=== PATIENT | female | born 1950 | race Caucasian/White ===

== ENCOUNTER 2020-02-06 11:25 | Day surgery (SDC) | payer MEDICARE, BC ==
[~2020-02-06] VITALS: Ht 160 cm; Wt 89.7 kg
--- NOTE | ~2020-02-06 | HEMODYNAMI ---
PATIENT:LUIS TOLEDO MEDICAL RECORD: [id number] : 48 LOCATION:[facility] ADMISSION DATE: 02/06/20 Generatedon:02/06/202013:59 Patient name: LUIS TOLEDO Patient #: [id number] SSN: : 1950 Date of study: 02/06/2020 Page: Of Hemodynamic Procedure Report Patient Data Patient Demographics Procedure consent was obtained First Name: LUIS Gender: Female Last Name: [place] : 1950 Patient #: [id number] Age: 69 year(s) Race: Additional ID: [id number] Contact details Address: [facility] [address] State: [place] City: [place] Zip code: [address] Admission Admission Data Admission Date: 02/06/2020 Admission Time: 11:25 Arrival Date: 02/06/2020 Arrival Time: 0:00 Admit Source: Other Insurance Payor: Medicare [facility] #: [id number] Height (in.): 62.99 BSA: 1.92 (m2) Height (cm.): 160 BMI: 34.77 (kg/m2) Weight (lbs.): 196.21 Weight (kg.): 89 Procedure Procedure Types Cath Procedure Diagnostic Procedure LHC LHC w/Coronaries w/Grafts Sedation Charges Moderate Sedation up to 15 minutes PCI Procedure Coronary Stent Coronary Stent Initial Hemochron ACT Test Procedure Description Procedure Date Procedure Date: 02/06/2020 Procedure Start Time: 13:38 Procedure End Time: 13:57 Procedure Staff Name Function Alvin Cabello MD Performing Physician Jaclyn Franco RT Monitor Rosey Robles RT Scrub Cecilio Robertson RN Nurse Procedure Data Cath Procedure Fluoroscopy Diagnostic fluoroscopy Total fluoroscopy Time: 3.2 time: 3.2 min min Diagnostic fluoroscopy Total fluoroscopy dose: 624 dose: 624 mGy mGy Contrast Material Contrast Material Type Amount (ml) Isovue 300 98 Entry Location Entry Primary Successful Side Size Upsize Upsize Entry Closure Succes sful Closure Location (Fr) 1 (Fr) 2 (Fr) Remarks Device Remarks Femoral Right 5 Fr 6 Fr Exoseal artery Short Estimated blood loss: 5 ml Diagnostic catheters Device Type Used For End Catheter Placement MULTIPACK JL 4.0 5Fr Left Coronary catheter Angiography MULTIPACK 3DRC 5Fr Right Coronary catheter Angiography MULTIPACK Pigtail 5 Fr LV Angiography catheter Procedure Complications No complications Procedure Medications Medication Administration Route Dosage 0.9% NaCl I.V. 100 ml/hr Oxygen etCO2 Nasal cannula 2 l/min Heparin Flush Bag added to field 2 bags (1000units/500ml NS) Lidocaine 2% added to field 20 Versed I.V. 2 mg Fentanyl I.V. 100 mcg Heparin Bolus I.V. 5000 units Integrilin (Bolus I.V. 7.9 ml 2mg/ml) Integrilin (Bolus wasted 2.1 ml 2mg/ml) Plavix P.O. 600 mg Hemodynamics Rest BSA: 1.92 (m2) O2 Consumption: Estimated: 181.42 (ml/min) O2 Consumption indexed : Estimated:94.49 (ml/min/m) Heart Rate: 76 (bpm) Pressure Samples Time Site Value (mmHg) Purpose Heart Use Rate(bpm) 13:46 LV 109/7,6 Snapshot 72 13:46 AO 187/129(151) Pullback 72 Gradients Valve Time Site Site 2 Mean SEP/DFP Peak To Heart Use 1 (mmHg) (sec/min) Peak Rate (mmHg) (bpm) Aortic 13:46 LV AO 72 187/129(151) Snapshots Pre Cath Intra NCS Post Cath Vital Signs Time Heart Resp SPO2 etCO2 NIBP Rhythm Pain Sedation Rate (ipm) (%) (mmHg) (mmHg) Status Level (bpm) 13:33:45 71 17 97 27.6 107/58(82) NSR 0 (11) 10(A) , No pain 13:38:09 70 17 96 30.6 101/54(72) NSR 0 (11) 10(A) , No pain 13:42:31 68 12 96 0 95/52(69) NSR 0 (11) 10(A) , No pain 13:46:49 71 12 94 34.3 101/59(76) NSR 0 (11) 9(A) , No pain 13:51:12 71 13 94 0 100/54(76) NSR 0 (11) 9(A) , No pain 13:55:32 71 16 96 33.6 100/56(78) NSR 0 (11) 10(A) , No pain Medications Time Medication Route Dose Verified Delivered Reason Notes Effectiveness by by 13:31:59 0.9% NaCl I.V. 100 Cecilio Cecilio Per physician ml/hr Marcelo Robertson RN RN 13:32:15 Oxygen etCO2 2 Cecilio Cecilio for low 02 sats Nasal l/min Marcelo Robertson cannula RN RN 13:32:26 Heparin Flush added 2 Cecilio Cecilio used for Bag to bags Marcelo Robertson procedure (1000units/500ml field RN RN NS) 13:32:36 Lidocaine 2% added 20ml Cecilio Cecilio for local to vial Marcelo Robertson anesthetic RN RN 13:38:36 Versed I.V. 2 mg Cecilio Cecilio for sedation Marcelo Robertson RN RN 13:38:46 Fentanyl I.V. 100 Cecilio Cecilio for sedation mcg Marcelo Robertson RN RN 13:51:14 Heparin Bolus I.V. 5000 Cecilio Cecilio for units Marcelo Robertson anticoagulation RN RN 13:51:38 Integrilin I.V. 7.9 Cecilio Cecilio for (Bolus 2mg/ml) ml Marcelo Robertson antiplatelet RN RN therapy 13:51:48 Integrilin wasted 2.1 Cecilio Cecilio to sharp's (Bolus 2mg/ml) ml Marcelo Robertson RN RN 13:57:08 Plavix P.O. 600 Cecilio Cecilio for mg Marcelo Robertson antiplatelet RN RN therapy Procedure Log Time Note 13:04:34 Informed consent obtained and on chart 13:04:44 Diagnostic Cath Status : Elective 13:05:10 Arrival Date: 02/06/2020 12:00:00 AM 13:05:11 Admit Source: Other 13:13:43 Insurance Payor : Medicare 13:13:51 Patient Height : 62.99 inches 13:13:55 Patient Weight : 196.21 lbs 13:14:11 Procedure Status Elective Heart Cath (OP). 13:14:15 Time tracking: Regular hours (M-F 7:00 - 5:00) 13:14:19 Plan of Care:Hemodynamics will remain stable., Cardiac rhythm will remain stable., Comfort level will be maintained., Respiratory function will remain adequate., Patient/ family verbilizes understanding of procedure., Procedure tolerated without complication., Recovers from procedure without complications.. 13:16:44 Jaclyn Franco RT(R) sent for patient. Start room use. 13:31:59 0.9% NaCl 100 ml/hr I.V. was administered by Cecilio Robertson RN; Per physician; Verbal order read back and verified. 13:32:15 Oxygen 2 l/min etCO2 Nasal cannula was administered by Cecilio Robertson RN; for low 02 sats; Verbal order read back and verified. 13:32:23 Patient received from Pre/Post Procedure Room to CCL 1 Alert and oriented. Tansferred to table in Supine position. 13:32:24 Warm blankets applied, and jerman hugger turned on for patient comfort. 13:32:25 Correct patient and procedure confirmed by team. 13:32:25 ECG and BP/O2 sat monitors applied to patient. 13:32:26 Heparin Flush Bag (1000units/500ml NS) 2 bags added to field was administered by Cecilio Robertson RN; used for procedure; Verbal order read back and verified. 13:32:26 Vital chart was started 13:32:27 Baseline sample Acquired. 13:32:31 Rhythm: sinus rhythm 13:32:33 Full Disclosure recording started 13:32:36 Lidocaine 2% 20ml vial added to field was administered by Cecilio Robertson RN; for local anesthetic; Verbal order read back and verified. 13:32:39 H&P Date Dictated: 02/06/2020 Within 30 days and on chart., H&P Addendum completed by physician on day of procedure. (MUST COMPLETE FOR ALL OUTPATIENTS). 13:32:41 Pre-procedure instructions explained to patient. 13:32:42 Pre-op teaching completed and patient verbalized understanding. 13:32:44 Family in patients room. 13:32:45 Patient NPO since Midnight. 13:32:48 Is the patient allergic to Iodine/contrast media? No. 13:32:54 Was the patient premedicated? Yes 13:32:56 Is patient on blood thinner?No 13:32:58 Patient diabetic? Yes. 13:33:04 If diabetic: On Metformin? No 13:33:06 Previous problem with sedation/anesthesia? No ? 13:33:09 Snore? Yes 13:33:10 Sleep apnea? No 13:33:11 Deviated septum? No 13:33:12 Opens mouth fully? Yes 13:33:12 Sticks out tongue? Yes 13:33:14 Airway obstruction? No ? 13:33:17 Dentures? No ? 13:33:20 Pre procedure: right dorsailis pedis pulse 2+ Normal; easily identifiable; not easily obliterated 13:33:22 Pre procedure: left dorsailis pedis pulse 2+ Normal; easily identifiable; not easily obliterated 13:33:24 Patient pain scale 0/10 ?. 13:33:31 IV patent on arrival in left forearm with 0.9% NaCl at [facility]. 13:33:35 Lab results completed and on chart. 13:33:58 Stress Test: no; N/A ? 13:35:54 Risk of Mortality: 0.1 13:35:56 Risk of blood transfusion: 0.4 13:35:58 Risk of LUIS: 0.3 13:36:02 Right groin area was prepped with chlora-prep and draped in sterile fashion 13:36:03 Alarms reviewed by R. N. 13:36:03 Sharps counted by scrub and verified by R.N. 13:36:05 Physician arrived 13:36:06 --------ALL STOP TIME OUT------ 13:36:06 Final Timeout: patient, procedure, and site verified with staff and physician. All members of the team are in agreement. 13:36:09 Right groin site verified by team. 13:36:13 Fire Safety Assessment: A--An alcohol-based skin anteseptic being used preoperatively., C--Open oxygen or nitrous oxide is being used., D--An ESU, laser, or fiber-optic light is being used. 13:36:16 Physical assessment completed. ASA score P 2 - A patient with mild systemic disease as per Alvin Cabello MD. 13:36:24 3a) 45-59 Moderately reduced kidney function. 13:36:46 Maximum allowable contrast dose (3.7 X eGFR X 0.75)130 ml. 13:36:51 Sedation plan: IV Moderate Sedation Medication:Versed, Fentanyl 13:36:54 Use device set Femoral Dx 13:36:55 ACIST Syringe (99349) opened to sterile field. 13:36:56 Bag Decanter (2001S) opened to sterile field. 13:36:56 Medline Cath Pack ([id number]) opened to sterile field. 13:36:57 ACIST Hand Control (80704) opened to sterile field. 13:36:58 ACIST Manifold (80546) opened to sterile field. 13:36:58 DIAGNOSTIC Multipack 5Fr catheter set (VD8940) opened to sterile field. 13:36:59 Tegaderm 4 x 4 (1626W) opened to sterile field. 13:37:00 SHEATH 5FR Knickerbocker (HXM464) opened to sterile field. 13:37:01 EMERALD Guide Wire (947-686) opened to sterile field. 13:38:36 Versed 2 mg I.V. was administered by Cecilio Robertson RN; for sedation; Verbal order read back and verified. 13:38:46 Fentanyl 100 mcg I.V. was administered by Cecilio Robertson RN; for sedation; Verbal order read back and verified. 13:38:46 Procedure started. 13:38:51 Local anesthetic to right femoral artery with Lidocaine 2% by Alvin Cabello MD.INITIAL ACCESS ONLY 13:40:00 A 5 Fr sheath was inserted into the Right Femoral artery 13:40:44 A MULTIPACK JL 4.0 5Fr catheter was advanced over the wire and used for Left Coronary Angiography. 13:42:00 LCA angiography performed. 13:42:02 Injector settings: Ml/sec: 3, Volume: 6, 13:42:34 Catheter removed. 13:42:40 A MULTIPACK 3DRC 5Fr catheter was advanced over the wire and used for Right Coronary Angiography. 13:43:26 RCA angiography performed. 13:43:29 Injector settings: Ml/sec: 3, Volume: 6, 13:45:21 Catheter removed. 13:45:44 A MULTIPACK Pigtail 5 Fr catheter was advanced over the wire and used for LV Angiography. 13:46:14 LV hemodynamics recorded. 13:46:15 LV gram done using DEL CASTILLO 13:46:18 Injector settings: Ml/sec: 5, Volume: 15, 13:46:24 EF : 55 % 13:46:26 Catheter removed. 13:46:27 Proceeding to intervention. 13:46:42 SHEATH 6FR Knickerbocker (EMW955) opened to sterile field. 13:46:43 INFLATOR Merit CaydenCompak (US7897) opened to sterile field. 13:46:43 WHISPER 300cm guide wire ([id number]) opened to sterile field. 13:48:38 GUIDE 6FR XBLAD 3.5 catheter ([id number]) opened to sterile field. 13:49:15 Sheath upsized to a 6 Fr Short. 13:49:21 6 Fr xblad 3.5 guide catheter was inserted over the wire 13:49:26 whisper wire advanced. 13:50:01 Wire advanced across lesion. 13:51:14 Heparin Bolus 5000 units I.V. was administered by Cecilio Robertson RN; for anticoagulation; Verbal order read back and verified. 13:51:38 Integrilin (Bolus 2mg/ml) 7.9 ml I.V. was administered by Cecilio Robertson RN; for antiplatelet therapy; Verbal order read back and verified. 13:51:48 Integrilin (Bolus 2mg/ml) 2.1 ml wasted was administered by Cecilio Robertson RN; to sharp's; Verbal order read back and verified. 13:53:39 ACC Pre-intervention MONI Flow is 3. 13:53:44 Pre PCI Site: [place] mCirc has 80% stenosis. 13:53:48 Place stent Inflation Number: 1 A DEVEN RX 2.5 x 12 stent ([id number]) was prepped and advanced across the Mid CX 80. The stent was deployed at 12 RYAN for 0:30 (min:sec) 0. 13:53:55 ACC Post-intervention MONI Flow is 3. 13:53:56 Stent catheter was removed intact over wire. 13:53:56 Wire removed. 13:53:56 Guide catheter removed. 13:54:22 EXOSEAL 6Fr (EX600) opened to sterile field. 13:54:32 Sheath removed intact; hemostasis achieved with Exoseal to the Right Femoral artery. 13:54:41 Procedure ended.(Physican Out) 13:55:26 Fluoroscopy time 03.20 minutes. 13:55:29 Fluoroscopy dose: 624 mGy 13:55:29 Flurop Dose total: 624 13:55:34 Dose Area Product 45273 mGy/cm. 13:55:38 Contrast amount:Isovue 300 98ml. 13:55:41 Maximum allowable dose exceeded? No. 13:55:41 Sharps counted by scrub and verified by R.N. 13:55:43 Insertion/operative site no bleeding no hematoma. 13:55:45 Post-op/insertion site Right Femoral artery dressed using a 4 x 4 and Tegaderm. 13:55:46 Post Procedure Pulses reassessed and unchanged 13:55:49 Post procedure rhythm: unchanged. 13:55:51 Estimated blood loss: 5 ml 13:55:53 Post procedure instruction explained to patient.Patient verbalizes understanding. 13:55:53 Patient needs reinforcement of post procedure teaching. 13:56:01 Procedure type changed to Cath procedure, Diagnostic procedure, LHC, [facility] w/Coronaries w/Grafts, Sedation Charges, Moderate Sedation up to 15 minutes, PCI procedure, Coronary Stent, Coronary Stent Initial, Hemochron ACT Test 13:56:55 Procedure and supply charges have been captured, reviewed, submitted and are correct. 13:57:02 Procedure Complication : No complications 13:57:04 Vital chart was stopped 13:57:06 [facility] Findings: MVD- PCI performed (see procedure note) 13:57:08 Plavix 600 mg P.O. was administered by Cecilio Robertson RN; for antiplatelet therapy; Verbal order read back and verified. 13:57:08 Operative report dictated upon procedure completion. 13:57:09 See physician's report for complete and final results. 13:57:10 Report given to Pre/Post Procedure Room. 13:57:13 Patient transfered to Pre/Post Procedure Room with Stretcher. 13:57:15 Procedure ended. 13:57:15 Full Disclosure recording stopped 13:57:22 ACC-PCI Only Patient was given prescriptions, or instructed by Alvin Cabello MD to start/continue the following medications upon discharge: Plavix 13:57:23 End room use (Document Last) 13:59:11 ACT drawn and resulted at 199 seconds. (normal therapeutic range 180-240 seconds). 13:59:13 End room use (Document Last) 13:59:29 End room use (Document Last) Intervention Summary Intervention Notes Time ActionType Lesion and Equipment Used Action# Pressure Duration Attributes 13:53:48 Place stent Mid CX DEVEN RX 2.5 x 1 12 00:30 12 stent ([id number]) Device Usage Item Name Manufacture Quantity Catalog Hospital Part Current [facility] Lot# / Number Charge Number Stock Stock Serial# Code ACIST Syringe Acist 1 34571 216293 455736 472638 20 (48187) [employer] Bag Decanter Microtek 1 2001S 465764 37594 807672 5 () Medical Inc. Medline Cath Medline 1 [id number] 848070 92923 939332 5 Pack ([id number]) ACIST Hand Acist 1 79977 783241 573399 121526 5 Control Medical (67124) Systems Inc ACIST Manifold Acist 1 78245 707368 526722 064711 5 (15406) [employer] Systems Inc DIAGNOSTIC Cardinal 1 [id number] 088198 76658 133958 30 Multipack 5Fr Health catheter set (IA8437) Tegaderm 4 x 4 3M 1 1626W 371027 001157 139984 5 (1626W) SHEATH 5FR Terumo 1 LNN126 611183 517954 595468 5 Knickerbocker (IPA754) EMERALD Guide Cardinal 1 502-455 013178 980984 188265 5 Wire (502-455) Health MULTIPACK JL Cardinal 1 015915 5 4.0 5Fr Health catheter MULTIPACK 3DRC Cardinal 1 872590 5 5Fr catheter Health MULTIPACK Cardinal 1 376660 5 Pigtail 5 Fr Health catheter SHEATH 6FR Terumo 1 [id number] 045254 582538 793622 40 Knickerbocker (VHE920) INFLATOR Merit Merit 1 KF8323 340526 252428 194362 15 [facility] Medical (BH3733) WHISPER 300cm Cedillo 1 [id number] 109698 274471 767246 5 guide wire Vascular (1082707MI) GUIDE 6FR Cardinal 1 [id number] 546142 312663 273295 10 XBLAD 3.5 Health catheter (66844707) DEVEN RX 2.5 x Medtronic 1 [id number] 239087 2718757 061963 5 [id number] 12 stent ([id number]) EXOSEAL 6Fr Cardinal 1 EX600 769773 646823 832777 10 (EX600) Health Signature Audit [place] Stage Time Signature Unsigned Intra-Procedure 02/06/2020 Jaclyn Franco 1:59:13 PM RT(R) Intra-Procedure 02/06/2020 Cecilio 1:59:29 PM Marcelo HENRY Intra-Procedure 02/06/2020 Alvin Patiño 1:59:44 PM Maurice SIDDIQUI [facility] [address] [place] [address]
[2020-02-06] MEDS ORDERED: GLUCOTROL 5 MG T5 MG PO (12:04)
[2020-02-06] MEDS ORDERED: NORVASC2.5 MG PO (12:04)
[2020-02-06] MEDS ORDERED: TENORMIN25 MG PO (12:05)
[2020-02-06] MEDS ORDERED: LISINOPRIL2.5 MG PO (12:05)
[2020-02-06] MEDS ORDERED: HYDROCHLOROTH12.5 M1 PO (12:05)
[2020-02-06] MEDS ORDERED: BAYER CHEWABLE81 MG PO (12:06)
[2020-02-06] MEDS ORDERED: ZYRTEC10 MG PO (12:06)
[2020-02-06] MEDS ORDERED: BUPROPION HCL100 MG PO (12:06)
[2020-02-06] MEDS ORDERED: OZEMPIC1 MG/0.75 SC (12:07)
[2020-02-06 12:19] VITALS: BP 135/82; Ht 160 cm; Wt 89.7 kg
[2020-02-06 12:31] LABS: BASOPHILS 0.6 % (0-2); EOSINOPHILS 3.5 % (0-7); HEMATOCRIT 43.5 % (36.0-48.0); HEMOGLOBIN 14.1 g/dL (12-16); IMMATURE GRANULOCYTES 0.1 % (0-5); LYMPHOCYTES 41.5 % (15-50); MCH 29.9 pg (26.0-34.0); MCHC 32.4 g/dL (31.0-37.0); MCV 92.2 fL (80.0-100.0); MEAN PLATELET VOLUME 10.2 fL (7.4-10.4); MONOCYTES 6.6 % (2-11); NEUTROPHILS 47.7 % (40-80); PLATELET COUNT 180 10x3/uL (130-400); RBC 4.72 10x6/uL (4.00-5.40); RDW 14.2 % (11.5-14.5); WBC 7.2 10x3/uL (4.8-10.8)
[2020-02-06 13:01] LABS: ANION GAP 11.3 mmol/L (8-16); CALCIUM 11.1 mg/dL (8.5-10.1); CARBON DIOXIDE 24.7 mmol/L (21.0-32.0); CHOL - HDL RATIO 5.4 ratio (2.3-4.1); CREATININE - SERUM 1.2 mg/dL (0.6-1.3); LDL-HDL RATIO 3.1 ratio (1.5-3.5)
--- NOTE | 2020-02-06 14:15 | NUR ---
PT ARRIVED BY STRETCHER. PLACED ON MONITORS. ASSESSMENT COMPLETED. VSS AT THIS TIME. CALL LIGHT WITHIN REACH. FAMILY AT BEDSIDE. PT C/O SOME INDIGESTION FROM [place], GIVEN SIPS OF [place]. SHE REPORTS THIS MAKES IT FEEL BETTER.
--- NOTE | 2020-02-06 14:30 | NUR ---
RIGHT GROIN DRESSING C/D/I. NO S/S OF HEMATOMA NOTED. CALL LIGHT WITHIN REACH. FAMILY AT BEDSIDE. NO NEEDS AT THIS TIME.
[2020-02-06] MEDS ORDERED: PLAVIX75 MG PO (14:33)
--- NOTE | 2020-02-06 15:00 | NUR ---
RIGHT GROIN DRESSING C/D/I. NO S/S OF HEMATOMA NOTED. CALL LIGHT WITHIN REACH. VSS AT THIS TIME. FAMILY AT BEDSIDE.
--- NOTE | 2020-02-06 15:30 | NUR ---
RIGHT GROIN DRESSING C/D/I. NO S/S OF HEMAOTMA NOTED. CALL LIGHT WITHIN REACH. VSS AT THIS TIME. DENIES NAUSEA/PAIN.
--- NOTE | 2020-02-06 16:00 | NUR ---
RIGHT GROIN DRESSING C/D/I. NO S/S OF HEMATOMA NOTED. CALL LIGHT WITHIN REACH. VSS AT THIS TIME. DENIES NAUSEA/PAIN. RIGHT PEDAL PULSE PALPABLE.
--- NOTE | 2020-02-06 17:00 | NUR ---
RIGHT GROIN DRESSING C/D/I. NO S/S OF HEMATOMA NOTED. CALL LIGHT WITHIN REACH. VSS AT THIS TIME. HEAD OF BED INC TO 30 DEGREES. TOLERATED WELL. SET UP WITH SANDWICH TRAY AND DRINK. DENIES NAUSEA/PAIN.
--- NOTE | 2020-02-06 17:30 | NUR ---
RIGHT GROIN DRESSING C/D/I. NO S/S OF HEMATOMA NOTED. PIV D/C'D WITH CATH TIP INTACT. TOLERATED WELL. PT INSTRUCTED TO GET UP AND DRESSED AT THIS TIME. FAMILY AT BEDSIDE TO ASSIST.
--- NOTE | 2020-02-06 17:50 | NUR ---
DISCUSSED DISCHARGE INSTRUCTIONS WITH PT AND PT'S FAMILY. THEY VOICED UNDERSTANDING. PT AMBULATED TO RESTROOM AND VOIDED WITHOUT DIFFICULTY. STEADY GAIT NOTED.
--- NOTE | 2020-02-06 17:55 | NUR ---
PT TAKEN DOWN TO VEHICLE BY WHEELCHAIR. NO S/S OF DISTRESS NOTED. ALL BELONGINGS AND PAPERWORK IN HAND.
--- NOTE | 2020-02-10 08:19 | OP ---
PATIENT NAME: LUIS TOLEDO MEDICAL RECORD: [id number] :48 LOCATION:D.CAT ADMISSION DATE: SURGEON: LINDA WATSON MD DATE OF OPERATION: 02/06/2020 PROCEDURE: Left heart catheterization, selective coronary angiography, right femoral artery approach. CATHETERS: A 5-Zambian sheath, 5/4 left and right Palmer, 5/4 pig. The procedure was well tolerated. The patient returned to manning. Sheath removed. ExoSeal device placed. FINDINGS: Left ventriculography in 30 degree DEL CASTILLO view normal wall motion and normal systolic function. CORONARY ANATOMY: LEFT MAIN: Left main is free of disease. LAD: Fills for a short period of time, then has a complex stenosis best seen filling competitive flow distally from the PEREZ. CIRCUMFLEX: Circumflex has a large OM with previously placed stent which is widely patent. There is an AV groove in circumflex has an 80% stenosis after the stented area. RIGHT CORONARY ARTERY: Previously stented area is widely patent. PEREZ TO LAD: This widely patent throughout its course. IMPRESSION: 80% described previously failed nitrates and Ranexa. PLAN: Intervention momentarily. DESCRIPTION OF PROCEDURE: A 5-Zambian sheath was exchanged for a 6-Zambian sheath. XB LAD guiding catheter provided good guide catheter support followed by 300 cm whisper wire placed across the 80% stenosis of circ down this portion of the vessel. Stent deployed was a 2.5 x 12 drug-eluting stent up to 14 hours for 45 seconds. Final angiography shows excellent resolution of 80% stenosis, no significant residual. MONI flow was 3 throughout the procedure. Heparin and Integrilin were used during the case. Plavix was loaded in the lab. Sheath was closed with ExoSeal device. TRANSINT:[id number] Voice Confirmation ID: [id number] DOCUMENT ID: [id number] LINDA WATSON MD at 0819 CC: [id number] DICTATION DATE: 02/06/20 1400 GOVERNMENT PROFESSOR: 02/06/20 2019 [facility] 02/06/[address] [place] [address]
== END 2020-02-06 17:55 | disposition home or self-care (01) ==
LOC: D.CATH 11:25
PROVIDERS: ATTEND Internal Medicine Interventional Cardiology
DX: I25.119 Atherosclerotic heart disease of native coronary artery with unspecified angina pectoris (principal); I10 Essential (primary) hypertension; E78.5 Hyperlipidemia, unspecified; E11.9 Type 2 diabetes mellitus without complications
CPT/HCPCS: 93459; C9600

== ENCOUNTER → 2020-10-26 09:06 | Outpatient (CLI) | payer MEDICARE, BC ==
[2020-02-06 12:19] VITALS: BMI 35.0
[~2020-10-26 09:06] MED LIST: BAYER CHEWABLE81 MG PO; BUPROPION HCL100 MG PO; GLUCOTROL 5 MG T5 MG PO; HYDROCHLOROTH12.5 M1 PO; LISINOPRIL2.5 MG PO; NORVASC2.5 MG PO; OZEMPIC1 MG/0.75 SC; PLAVIX75 MG PO; TENORMIN25 MG PO; ZYRTEC10 MG PO
== END | disposition home or self-care (01) ==
LOC: D.NM 09:06
PROVIDERS: ATTEND Internal Medicine
DX: E03.9 Hypothyroidism, unspecified (principal)